=== PATIENT | male | born 1995 | race Caucasian/White ===

== ENCOUNTER 2020-03-07 16:46 | Emergency (ER) | payer MEDICAID ==
[~2020-03-07] VITALS: Ht 160 cm; Wt 103.9 kg
[2020-03-07 18:01] VITALS: BP_SYST 126
--- NOTE | 2020-03-07 18:08 | NUR ---
Patient triaged and placed in waiting room. VSS and patient appears in no acute distress at this time. Awaiting available bed, and MD notified of need for MSE.
--- NOTE | 2020-03-07 20:30 | NUR ---
Pt brought in by self. pt states he has had truncal rash spreading to extremeties over the past week. pt states that he spilled concrete powder on himself and the rash started 2 days after. pt denies any other complaint at this time. Pt denies chest pain, nausea, vomiting, diarrhea, sob, oany other complaint.
--- NOTE | 2020-03-07 20:34 | NUR ---
ER IN TRIAGE ROOM examining patient.
[2020-03-07] MEDS ORDERED: methylPREDNISolone SOD SUCC/PF 62.5 MG/ML VIAL IVP ONE (20:45)
[2020-03-07 21:05] VITALS: BP_SYST 126
--- NOTE | 2020-03-07 21:05 | NUR ---
Patient given written and verbal discharge instructions and verbalizes understanding. ER MD discussed with patient the results and treatment provided. Patient in stable condition. ID arm band removed. No IV Rx of Elimite, benadryl given. Patient educated on pain and rash management and to follow up with PMD. Pain Scale 0/10. Opportunity for questions provided and answered. Medication side effect fact sheet provided.
== END 2020-03-07 21:05 | disposition home or self-care (01) ==
LOC: SED 16:46
DX: L25.9 Unspecified contact dermatitis, unspecified cause (principal); J45.909 Unspecified asthma, uncomplicated
CPT/HCPCS: 96372; 99283; J2930

== ENCOUNTER 2020-04-25 18:56 | Emergency (ER) | payer MEDICAID ==
[~2020-04-25] VITALS: Ht 170.2 cm; Wt 86.2 kg
[2020-04-25 19:05] VITALS: BP_SYST 144
--- NOTE | 2020-04-25 19:05 | NUR ---
Patient to ER bed 03 to gown for evaluation. Side rails up.
--- NOTE | 2020-04-25 19:06 | NUR ---
Patient came to ER with family. c/o left foot pain x today. Patient states " my co-worker dropped a heavy object on my left foot by accident around 1400 PM." A/O,X4, left foot pain, pain rate 2/10, swelling and bruise.
--- NOTE | 2020-04-25 19:29 | NUR ---
X-ray at bedside.
--- NOTE | 2020-04-25 20:06 | NUR ---
ER at bedside examining patient.
[2020-04-25] MEDS ORDERED: KETOROLAC TROMETHAMINE 60 MG/2 ML VIAL IM ONE (20:15)
[2020-04-25] MEDS ORDERED: DIPH-TET-PERTUS Vaccine 0.5 ML VIAL (ADACEL) I.M. ONE (20:15)
[2020-04-25 20:30] VITALS: BP_SYST 144
--- NOTE | 2020-04-25 20:30 | NUR ---
Patient given written and verbal discharge instructions and verbalizes understanding by Dr. Morales. ER MD discussed with patient the results and treatment provided. Patient in stable condition. ID arm band removed. Rx of Naprosyn given. Patient educated on pain management and to follow up with PMD. Pain Scale 1/10. Opportunity for questions provided and answered. Medication side effect fact sheet provided.
== END 2020-04-25 20:30 | disposition home or self-care (01) ==
LOC: SED 18:56
DX: S97.82XA Crushing injury of left foot, initial encounter (principal); J45.909 Unspecified asthma, uncomplicated; W18.09XA Striking against other object with subsequent fall, initial encounter; Y93.89 Activity, other specified; Y92.89 Other specified places as the place of occurrence of the external cause; Y99.8 Other external cause status
CPT/HCPCS: 73630; 90471; 90715; 99283; J1885

== ENCOUNTER 2020-05-05 12:20 | Emergency (ER) | payer MEDICAID ==
[~2020-05-05] VITALS: Ht 165.1 cm; Wt 107.5 kg
[2020-05-05 12:29] VITALS: BP_SYST 140
--- NOTE | 2020-05-05 12:33 | NUR ---
Patient to ER bed 6 to gown for evaluation. Side rails up. Report given to ZEINA Schroeder.
--- NOTE | 2020-05-05 12:35 | NUR ---
Patient came from home because he needs an "extension" for his work and more pain medication. Patient was previously seen in the ER for a foot injury.
--- NOTE | 2020-05-05 12:45 | NUR ---
ER Dr. Candelario at bedside examining patient.
[2020-05-05 13:05] VITALS: BP_SYST 140
--- NOTE | 2020-05-05 13:05 | NUR ---
Patient given written and verbal discharge instructions and verbalizes understanding. ER MD discussed with patient the results and treatment provided. Patient in stable condition. ID arm band removed. Rx of Naproxen and Tramadol given. Patient educated on pain management and to follow up with PMD. Pain Scale 0/10. Opportunity for questions provided and answered. Medication side effect fact sheet provided.
== END 2020-05-05 13:05 | disposition home or self-care (01) ==
LOC: SED 12:20
DX: S97.81XA Crushing injury of right foot, initial encounter (principal); J45.909 Unspecified asthma, uncomplicated; X58.XXXA Exposure to other specified factors, initial encounter; Y93.89 Activity, other specified; Y92.89 Other specified places as the place of occurrence of the external cause; Y99.8 Other external cause status
CPT/HCPCS: 99283

== ENCOUNTER 2020-05-13 18:29 | Emergency (ER) | payer MEDICAID ==
[~2020-05-13] VITALS: Ht 170.2 cm; Wt 86.2 kg
[2020-05-13 19:02] VITALS: BP_SYST 147
--- NOTE | 2020-05-13 19:14 | NUR ---
Patient to ER bed 02 to gown for evaluation. Side rails up.
--- NOTE | 2020-05-13 19:16 | NUR ---
ER at bedside examining patient.
--- NOTE | 2020-05-13 19:20 | NUR ---
Pt presents to ER c/o L foot pain and work note. Pt reports injury to L foot 2 weeks ago. Pt states needing doctors note for L foot injury and he cannot get note until Tuesday. Pt reports pain 12/06. L foot appears swollen w/ slight reddness. Pt can bear weight on L foot w/ steady gait.
[2020-05-13 20:16] VITALS: BP_SYST 147
--- NOTE | 2020-05-13 20:16 | NUR ---
Patient given written and verbal discharge instructions and verbalizes understanding. ER MD discussed with patient the results and treatment provided. Patient in stable condition. ID arm band removed. Patient educated on pain management and to follow up with PMD. Pain Scale 4/10. Opportunity for questions provided and answered. Medication side effect fact sheet provided.
== END 2020-05-13 20:16 | disposition home or self-care (01) ==
LOC: SED 18:29
DX: M79.672 Pain in left foot (principal); J45.909 Unspecified asthma, uncomplicated
CPT/HCPCS: 99282

== ENCOUNTER 2020-07-11 14:44 | Emergency (ER) | payer MEDICAID ==
[~2020-07-11] VITALS: Ht 170.2 cm; Wt 88.5 kg
[2020-07-11 15:08] VITALS: BP_SYST 149
[2020-07-11] MEDS ORDERED: MAG HYDROX/AL HYDROX/SIMETH 30 ML, DICYCLOMINE HCL 20 MG, LIDOCAINE VISCOUS 2% 15ML (PO... PO ONE ×3 (16:15)
[2020-07-11 16:22] VITALS: BP_SYST 149
== END 2020-07-11 16:24 | disposition home or self-care (01) ==
LOC: SED 14:44
DX: J02.9 Acute pharyngitis, unspecified (principal)
CPT/HCPCS: 99283; J2001

== ENCOUNTER 2021-07-20 21:40 | Emergency (ER) | payer MEDICAID ==
[~2021-07-20] VITALS: Ht 167.6 cm; Wt 120.2 kg
[2021-07-20 22:11] VITALS: BP_SYST 135
--- NOTE | 2021-07-20 22:17 | NUR ---
Patient triaged and placed in waiting room. VSS and patient appears in no acute distress at this time. Accompanied by SELF, awaiting available bed, and MD notified of need for MSE.
--- NOTE | 2021-07-20 22:22 | NUR ---
ER at bedside examining patient.
[2021-07-20] MEDS ORDERED: HYDC2.5% TP (22:31)
[2021-07-20] MEDS ORDERED: DOXY100T2 PO (22:31)
[2021-07-20 22:37] VITALS: BP_SYST 135
--- NOTE | 2021-07-20 22:37 | NUR ---
Patient given written and verbal discharge instructions by Dr Morales and verbalizes understanding. ER MD discussed with patient the results and treatment provided. Patient in stable condition. ID arm band removed by Dr Morales. Rx of Doxycycline hyclate and Hydrocortisone2.5% sent to phrmacy of choice. Patient educated on pain management and to follow up with PMD. Pain Scale 0/10. Opportunity for questions provided and answered by Dr Morales.
== END 2021-07-20 22:37 | disposition home or self-care (01) ==
LOC: SED 21:40
DX: L20.9 Atopic dermatitis, unspecified (principal)
CPT/HCPCS: 99283

== ENCOUNTER 2021-09-12 12:20 | Emergency (ER) | payer MEDICAID, SELFPAY ==
[~2021-09-12] VITALS: Ht 170.2 cm; Wt 99.8 kg
[~2021-09-12 12:20] MED LIST: DOXY100T2 PO; HYDC2.5% TP
[2021-09-12 12:25] VITALS: BP_SYST 132
== END 2021-09-12 13:15 | disposition left against medical advice (07) ==
LOC: SED 12:20
DX: Z53.21 Procedure and treatment not carried out due to patient leaving prior to being seen by health care provider (principal)

== ENCOUNTER 2021-10-16 19:19 | Emergency (ER) | payer BC, MEDICAID ==
[~2021-10-16] VITALS: Ht 167.6 cm; Wt 108.9 kg
[2021-10-16 19:32] VITALS: BP_SYST 157
--- NOTE | 2021-10-16 19:35 | NUR ---
Patient triaged and placed in waiting room. VS checked and patient appears in no acute distress at this time. Accompanied by self, awaiting available bed, and MD notified of need for MSE.
--- NOTE | 2021-10-16 19:58 | NUR ---
Patient wheeled to ER bed 1 for evaluation. Side rails up.
--- NOTE | 2021-10-16 20:00 | NUR ---
ER physician at bedside.
[2021-10-16] MEDS ORDERED: HYDROcodone/ACETAMIN 5-325 MG TAB (NORCO/ VICODIN) PO ONE (21:00)
[2021-10-16 21:23] VITALS: BP_SYST 130
--- NOTE | 2021-10-16 21:24 | NUR ---
Patient given written and verbal discharge instructions and verbalizes understanding. ER MD discussed with patient the results and treatment provided. Patient in stable condition. ID arm band removed. Rx of given. Patient educated on pain management and to follow up with PMD. Pain Scale . Opportunity for questions provided and answered. Medication side effect fact sheet provided.
== END 2021-10-16 21:24 | disposition home or self-care (01) ==
LOC: SED 19:19
DX: S80.12XA Contusion of left lower leg, initial encounter (principal); J45.909 Unspecified asthma, uncomplicated; Z79.899 Other long term (current) drug therapy; W10.8XXA Fall (on) (from) other stairs and steps, initial encounter; Y93.89 Activity, other specified; Y92.89 Other specified places as the place of occurrence of the external cause; Y99.8 Other external cause status
CPT/HCPCS: 73590-TC; 99283

== ENCOUNTER 2022-01-13 13:52 | Emergency (ER) | payer BC, MEDICAID ==
[~2022-01-13] VITALS: Ht 170.2 cm; Wt 99.8 kg
[2022-01-13 14:03] VITALS: BP_SYST 128
[2022-01-13] MEDS ORDERED: NACL 0.9% 1,000 ML IV ONE (14:15)
[2022-01-13] MEDS ORDERED: ONDANSETRON HCL 4 MG/2 ML VIAL IVP ONE (14:15)
[2022-01-13] MEDS ORDERED: KETOROLAC TROMETHAMINE 30 MG VIAL IVP ONE (14:15)
[2022-01-13 14:41] LABS: BASOPHILS % (AUTO) 0.1 % (0.0-2.0); EOSINOPHILS # (AUTO) 0.1 K/uL (0.0-0.4); EOSINOPHILS % (AUTO) 0.5 % (0.0-4.0); HEMATOCRIT 48.6 % (36-54); HEMOGLOBIN 16.2 g/dL (14.0-18.0); LYMPHOCYTES # (AUTO) 0.7 K/uL (1.0-5.5); LYMPHOCYTES % (AUTO) 4.9 % (20.5-51.5); MEAN CORPUSCULAR HEMOGLOBIN 26 pg (27-31); MEAN CORPUSCULAR HGB CONC 33 % (32-36); MEAN CORPUSCULAR VOLUME 78 fL (79.0-98.0); MONOCYTES # (AUTO) 0.6 K/uL (0.0-1.0); MONOCYTES % (AUTO) 4.4 % (1.7-9.3); NEUTROPHILS # (AUTO) 12.7 K/uL (1.8-7.7); NEUTROPHILS % (AUTO) 90.1 % (40.0-70.0); PLATELET COUNT (AUTO) 239 K/uL (130-430); RED BLOOD CELL COUNT(AUTO) 6.22 MIL/uL (4.2-6.2); RED CELL DISTRIBUTION WIDTH 14.4 % (9.0-15.0); WHITE BLOOD COUNT (AUTO) 14.1 K/uL (4.8-10.8)
[2022-01-13 14:46] LABS: CALCIUM 8.8 mg/dL (8.4-11.0); CREATININE 1.2 mg/dL (0.55-1.30); POTASSIUM 3.5 mmol/L (3.5-5.1)
[2022-01-13 14:51] LABS: ALBUMIN 3.9 g/dL (3.4-4.8); TOTAL BILIRUBIN 0.6 mg/dL (0.0-1.0)
[2022-01-13] MEDS ORDERED: ONDA-8 TL (15:58)
== END 2022-01-13 16:00 | disposition home or self-care (01) ==
LOC: SED 13:52
DX: A08.4 Viral intestinal infection, unspecified (principal); J45.909 Unspecified asthma, uncomplicated
CPT/HCPCS: 36415; 80053; 85025; 96361; 96374; 96375; 99284; J1885; J2405; J7030

== ENCOUNTER 2023-02-12 22:34 | Emergency (ER) | payer MEDICAID ==
[~2023-02-12] VITALS: Ht 167.6 cm; Wt 99.8 kg
[~2023-02-12 22:34] MED LIST changes: +ONDA-8 TL
[2023-02-12 22:45] VITALS: BP_SYST 147
--- NOTE | 2023-02-12 22:49 | NUR ---
ALLERGIC REATION TO CEMENT, RASH TO FACE/ABD/ARMS/LEGS, PLACED IN ED BED 7
--- NOTE | 2023-02-12 22:49 | NUR ---
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 He was at work today with side job and noticed spots and redness. Denies eating or drinking anything out of ordinary. Denies allergies. Responsive alert and oriented x4. Respiration even and unlabored. VSS. Will continue to monitor.
[2023-02-12] MEDS ORDERED: DIPHENHYDRAMINE INJ 50 MG/ML VIAL IM ONE (23:15)
[2023-02-12] MEDS ORDERED: methylPREDNISolone SOD SUCC/PF 62.5 MG/ML VIAL IM ONE (23:15)
[2023-02-12] MEDS ORDERED: FAMOTIDINE 20 MG TABLET PO ONE (23:15)
[2023-02-13] MEDS ORDERED: PRED20TA PO (00:46)
[2023-02-13] MEDS ORDERED: DIPH25CA83 PO (00:46)
--- NOTE | 2023-02-13 00:54 | NUR ---
PATIENT STATES HE FEELS LESS ITCHY, WORK NOTE GIVEN, RX GIVEN, Patient given written and verbal discharge instructions and verbalizes understanding. ER MD discussed with patient the results and treatment provided. Patient in stable condition. ID arm band removed. Rx of given. Patient educated on pain management and to follow up with PMD. Pain Scale 0/10. Opportunity for questions provided and answered. Medication side effect fact sheet provided.
[2023-02-13 00:56] VITALS: BP_SYST 130
== END 2023-02-13 00:56 | disposition home or self-care (01) ==
LOC: SED 22:34
DX: T78.40XA Allergy, unspecified, initial encounter (principal); R21 Rash and other nonspecific skin eruption; J45.909 Unspecified asthma, uncomplicated; Z79.899 Other long term (current) drug therapy; X58.XXXA Exposure to other specified factors, initial encounter
CPT/HCPCS: 99284; 96372; J1200; J2930